=== PATIENT | male | born 2000 | race Two or more races ===

== ENCOUNTER 2024-08-09 14:01 | Emergency (ER) | payer OTHER ==
[~2024-08-09] VITALS: Ht 162.6 cm; Wt 45.4 kg
[2024-08-09 14:54] VITALS: BP 115/71; O2SAT 96
[2024-08-09] MEDS ORDERED: ACETAMINOPHEN 500 MG GEL..CAP PO ONE (17:55)
[2024-08-09 18:41] LABS: HEMATOCRIT 44.9 % (39.0-48.0); HEMOGLOBIN 15.9 g/dL (13-16.00); MEAN CELL VOLUME 87.8 fL (80.0-100.00); MEAN CORPUSCULAR HGB CONC 35.3 g/dl (32.0-36.0); PLATELET COUNT 158 K/uL (150-450); RED BLOOD COUNT 5.11 M/uL (4.00-6.00); RED CELL DISTRIBUTION WIDTH 12.9 % (11.5-14.5)
[2024-08-09] MEDS ORDERED: GILTUSS COUGH-118 M1 PO (20:19)
== END 2024-08-09 20:31 | disposition home or self-care (01) ==
LOC: ER 14:03
PROVIDERS: Preventive Medicine Public Health & General Preventive Medicine
DX: B34.9 Viral infection, unspecified (principal); R50.9 Fever, unspecified; Z20.822 Contact with and (suspected) exposure to COVID-19